=== PATIENT | female | born 1975 | race Asian ===

== ENCOUNTER 2024-09-13 10:44 | Outpatient (CLI) | payer OTHER, SELFPAY | END 2024-09-13 10:45 | disposition home or self-care (01) | LOC: FRMREF 10:46 | PROVIDERS: PCP Nurse Practitioner Family; Visit Provider Nurse Practitioner Family | DX: E11.9 Type 2 diabetes mellitus without complications (principal); D64.9 Anemia, unspecified; G70.00 Myasthenia gravis without (acute) exacerbation; Z13.6 Encounter for screening for cardiovascular disorders | CPT/HCPCS: 80053; 80061 ==

== ENCOUNTER 2024-09-24 08:59 | Outpatient (CLI) | payer OTHER, SELFPAY ==
--- NOTE | 2024-09-24 09:29 | P.ANES_ITS ---
Anesthesia Charges Start Date/Time Anesthesia Start Date: 09/24/24 Anesthesia Start Time: 09:50 Stop Date/Time Anesthesia Stop Date: 09/24/24 Anesthesia Stop Time: 10:30 Coding CPT Codes CPT Codes: ANES UPR LWR GI NDSC PX - 06272 ([id number]) P2 - PATIENT W/MILD SYST DISEASE, QK - ELECTROPLATER AUTOMATIC 2-4 CNCRNT ANES PROC, QX - ROAD PASSENGER FIRER SVC W/ MD MED DIRECTION
--- NOTE | 2024-09-24 09:29 | W.ANESCHARGE ---
Anesthesia Charges Start Date/Time Anesthesia Start Date: 09/24/24 Anesthesia Start Time: 09:50 Stop Date/Time Anesthesia Stop Date: 09/24/24 Anesthesia Stop Time: 10:30 Coding CPT Codes CPT Codes: ANES UPR LWR GI NDSC PX - 40789 ([id number]) P2 - PATIENT W/MILD SYST DISEASE, QK - SENIOR VICE PRESIDENT AND CHIEF INFORMATION OFFICER 2-4 CNCRNT ANES PROC, QX - ASSOCIATE PROFESSOR OF THEATRE SVC W/ MD MED DIRECTION
--- NOTE | 2024-09-24 11:12 | P.ANES_ITS ---
Anesthesia Charges Start Date/Time Anesthesia Start Date: 09/24/24 Anesthesia Start Time: 09:50 Stop Date/Time Anesthesia Stop Date: 09/24/24 Anesthesia Stop Time: 10:30 Coding CPT Codes CPT Codes: ANES UPR LWR GI NDSC PX - 93797 ([id number]) QK - WARM IN 2-4 CNCRNT ANES PROC, QX - WELL TENDER SVC W/ MD MED DIRECTION, P2 - PATIENT W/MILD SYST DISEASE
--- NOTE | 2024-09-24 11:12 | W.ANESCHARGE ---
Anesthesia Charges Start Date/Time Anesthesia Start Date: 09/24/24 Anesthesia Start Time: 09:50 Stop Date/Time Anesthesia Stop Date: 09/24/24 Anesthesia Stop Time: 10:30 Coding CPT Codes CPT Codes: ANES UPR LWR GI NDSC PX - 68849 ([id number]) QK - WAX SPECIALIST 2-4 CNCRNT ANES PROC, QX - VENDER SVC W/ MD MED DIRECTION, P2 - PATIENT W/MILD SYST DISEASE
== END 2024-09-24 09:00 | disposition home or self-care (01) ==
PROVIDERS: PCP Nurse Practitioner Family; Visit Provider Internal Medicine
DX: Z12.11 Encounter for screening for malignant neoplasm of colon (principal); R10.13 Epigastric pain
CPT/HCPCS: 00813; 43239; 45378; J2704; J3490

== ENCOUNTER 2024-12-14 14:00 | Outpatient (CLI) | payer OTHER, SELFPAY ==
--- NOTE | 2024-12-14 15:00 | CRLHL7_ITS ---
For Patients: As a result of the Century Cures Act, medical imaging exams and procedure reports are released immediately into your electronic medical record. You may view this report before your referring provider. If you have questions, please contact your health care provider. INDICATION: BILATERAL SCREENING MAMMOGRAM W/IMPLANTS, ASYMPTOMATIC 49 Y/O FEMALE COMPARISON: 12/02/2020 TECHNIQUE: Digital mammogram in CC and MLO projections including computer-aided detection (CAD) and tomosynthesis. BREAST COMPOSITION: The breasts are heterogeneously dense, which may obscure small masses. FINDINGS: No suspicious findings. ASSESSMENT: BI-RADS 2 Benign RECOMMENDATION: Annual screening mammogram. A lay language report of this examination will be provided to the patient. Dictated by: Pascual Jacobsen MD @ 12/20/2024 09:32:10 (Electronically Signed)
== END 2024-12-14 14:01 | disposition home or self-care (01) ==
LOC: MAMMO 14:01
PROVIDERS: PCP Nurse Practitioner Family; Visit Provider Nurse Practitioner Family
DX: Z12.31 Encounter for screening mammogram for malignant neoplasm of breast (principal); R92.333 Mammographic heterogeneous density, bilateral breasts; Z98.82 Breast implant status
CPT/HCPCS: 77063; 77067